=== PATIENT | female | born 1955 | race Caucasian/White ===

== ENCOUNTER 2021-05-02 12:11 | Inpatient (IN) ==
[2021-05-02] MEDS ORDERED: 0.9 % SODIUM CHLORIDE 1,000 ML IV ONE ×2 (12:31→14:07)
[2021-05-02] MEDS ORDERED: ONDANSETRON 4 MG/2 ML VIAL IV ONE ×2 (12:31→14:08)
[2021-05-02] MEDS ORDERED: ONDANSETRON 4 MG ODT TABLET SL ONE (12:36)
--- NOTE | 2021-05-02 13:06 | Emergency Department Note ---
Female Urogenital HPI General Chief complaint: Urogenital-Female Stated complaint: blood in urine Time Seen by Provider: 05/02/21 12:21 Source: patient and family Mode of arrival: ambulatory Limitations: no limitations History of Present Illness HPI Narrative: Narrative: Patient is a 66-year-old female who comes into the emergency department with concern of when she voided she had bright red blood in the toilet. She indicates that this started this morning. She has been nauseous over the last couple of days, but her son reports that she often has chronic nausea and he is not sure if this is related to her pain medication that she takes which causes her to be nauseous. She indicates that the nausea has now subsided since arriving to the emergency department. She has not had any abdominal pain, melena, hematochezia. She reports normal bowel movements with soft brown bowel movements. She was seen last week by myself in the emergency department and had tinea cruris, and was treated with clotrimazole. Patient and her son indicate that this has began to improve significantly. She has not noticed any breaks in the skin, lacerations, or vaginal discharge. She has not had any fevers or chills. She has not had any chest pain, shortness of breath, or difficulty breathing. Related Data Home Medications Medication Instructions Recorded Confirmed aspirin 81 mg tablet,delayed 81 mg PO QDAY 06/28/19 03/23/21 release Previous Rx's Medication Instructions Recorded methocarbamol 750 mg tablet 750 mg PO TID #60 tab 07/19/19 docusate sodium 100 mg capsule 100 mg PO QDAY #90 cap 10/22/19 furosemide 40 mg tablet 40 mg PO QAM #30 tab 04/01/20 metoprolol tartrate 25 mg tablet 12.5 mg PO BID #30 tab 11/25/20 amlodipine 10 mg tablet 10 mg PO QDAY #90 tab 12/26/20 atorvastatin 40 mg tablet 40 mg PO QHS #90 tab 12/26/20 losartan 100 mg tablet 100 mg PO QDAY #90 tab 12/26/20 naproxen 500 mg tablet 500 mg PO BID PRN #60 tab 01/28/21 albuterol sulfate 90 mcg/actuation 2 puff INHALATION QID #18 g 02/09/21 aerosol inhaler paroxetine HCl 20 mg tablet See Rx Instructions .ROUTE 02/23/21 .COMPLEX #30 tab potassium chloride 10 mEq See Rx Instructions .ROUTE 02/23/21 tablet,extended release(part/cryst) .COMPLEX #30 tab haloperidol 5 mg tablet See Rx Instructions .ROUTE 03/12/21 .COMPLEX #90 tab lorazepam 1 mg tablet 1 mg PO QD-BID PRN #60 tab 03/12/21 clopidogrel 75 mg tablet See Rx Instructions .ROUTE 03/23/21 .COMPLEX #90 tab benztropine 0.5 mg tablet See Rx Instructions .ROUTE 04/13/21 .COMPLEX #90 tab clotrimazole 1 applic TOPICAL BID 14 Days #45 g 04/26/21 hydrocodone 5 mg-acetaminophen 325 1 tab PO Q6H #120 tab 04/27/21 mg tablet Allergies Allergy/AdvReac Type Severity Reaction Status Date / Time gabapentin [From Neurontin] Allergy Unknown Increase Verified 03/23/21 09:02 depression and dizziness Review of Systems ROS ROS Narrative: Narrative: All systems ED: reviewed and negative except as stated. [facility] Narrative Patient History Narrative: Narrative: Medical/Surgical/Family History All Active Problems (Updated 05/02/21 @ 14:14 by CARLOS Hsu) Tinea cruris (Acute) Acute bacterial conjunctivitis of both eyes (Acute) COPD (chronic obstructive pulmonary disease) (Acute) Osteoporosis (Acute) Annual physical exam (Acute) Arthritis (Acute) Transient ischemic attack, acute (Acute) Chronic hip pain, bilateral (Acute) Asthma (Acute) UTI (urinary tract infection) (Acute) Acute congestive heart failure (Acute) Stress fracture, left femur, subsequent encounter for fracture with routine healing (Acute) Left inguinal pain (Acute) History of colonoscopy (Chronic 12/10/13) Hyperlipemia (Chronic) Hyponatremia (Chronic) Currently smokes tobacco (Chronic) Osteopenia (Chronic) Total urinary incontinence (Chronic) Obstructive sleep apnea (Chronic) Hypertension (Chronic) Encounter for long-term (current) use of other medications (Chronic) Restless leg syndrome (Chronic) CAD (coronary artery disease) (Chronic) Acute anteroseptal myocardial infarction (Chronic ~2018) Cataract (Chronic) Anxiety (Chronic) Schizophrenia (Chronic) Glaucoma (Chronic) Acute encephalopathy (Chronic) Medical History (Updated 05/02/21 @ 14:14 by CARLOS Hsu) Acute anteroseptal myocardial infarction (~2018) Acute encephalopathy Anxiety CAD (coronary artery disease) Cataract Currently smokes tobacco Elevated blood pressure reading without diagnosis of hypertension Encounter for long-term (current) use of other medications Glaucoma Hyperlipemia Hypertension Hyponatremia Hyponatremia Leg fracture, left Obstructive sleep apnea Osteopenia Restless leg syndrome Schizophrenia Total urinary incontinence Surgical History History of colonoscopy (12/10/13) diverticulosis Family History Other No pertinent family history Social History Smoking Status: Former smoker Alcohol Intake Frequency: does not drink Substance Use: does not use Exam Narrative Narrative: Narrative: General Limitations: no limitations General appearance: Present in no apparent distress and obese Eye Eye: Present other (Conjunctival injection OU with mild yellow mucoid discharge to each conjunctival sac.); Absent scleral icterus ENT ENT: Present normal oropharynx and mucous membranes moist Neck Neck: Present normal inspection and full ROM Chest Chest: Present symmetric chest wall rise Respiratory Respiratory: Present normal lung sounds bilaterally; Absent respiratory distress, rales/crackles, wheezes, stridor, accessory muscle use and prolonged expiratory phase Cardiovascular Cardiovascular: Present regular rate, normal rhythm and normal heart sounds; Absent systolic murmur and diastolic murmur Adbominal Abdominal: Present soft and normal bowel sounds; Absent distention, tenderness, guarding, rebound, rigidity, ascites and mass Extremities Extremities: Present normal inspection, full ROM and normal capillary refill Back Back: Present normal inspection and full ROM; Absent CVA tenderness (R) and CVA tenderness (L) Neurological Neurological: Present alert and oriented X3 Psychiatric Psychiatric: Present normal affect and normal mood Skin Skin: Present warm (WNL), dry and normal color Course Vital Signs Vital signs: Vital Signs Temperature 97.9 F 05/02/21 12:12 Pulse Rate 61 05/02/21 12:12 Respiratory Rate 16 05/02/21 12:12 Blood Pressure 152/73 05/02/21 12:12 Pulse Oximetry (%) 98 05/02/21 12:12 Temperature 97.9 F 05/02/21 12:12 Pulse Rate 62 05/02/21 13:31 Respiratory Rate 16 05/02/21 12:12 Blood Pressure 147/70 05/02/21 14:00 Pulse Oximetry (%) 92 05/02/21 13:31 MDM MDM Narrative Medical decision making narrative: Narrative: 66-year-old female who comes into the emergency department with complaint of hematuria that started today. Urinalysis showed signs of urinary tract infection. She has a white count today of 15.3. Vital signs today are normal. She is afebrile. Does not appear to show signs of sepsis. Her chemistry panel shows that her sodium is 125. Normal renal function. Patient does have a history of hyponatremia. She reports today that she decreased her salt intake recently. She does have underlying psychiatric illness of schizophrenia which perhaps medications could have caused the hyponatremia as well. I discussed this case with the hospitalist today, and Dr. Cheema agrees to accept the patient for hospital admission at [facility]. Patient will be ordered 1 g Rocephin IV to be given here in the emergency department, and will start 1 L normal saline. Lab Data Lab results reviewed: Yes I reviewed the patient's lab results. Result diagrams: 05/02/21 12:53 05/02/21 12:52 Labs: Lab Results 05/02/21 05/02/21 05/02/21 Range/Units 12:35 12:52 12:53 WBC 15.3 H (4.5-11.0) K/mcL RBC 3.91 (3.59-5.38) M/mcL Hgb 12.2 (11.2-15.7) g/dL Hct 35.8 (34.1-44.9) % MCV 91.6 (80.0-100.0) fL MCH 31.2 (26.0-34.0) pg MCHC 34.1 (31.0-36.0) g/dL RDW 13.1 (11.5-14.5) % Plt Count 346 (140-440) K/mcL MPV 9.3 (7.4-10.4) fL Neut % (Auto) 76.5 (38.0-78.0) % Lymph % (Auto) 13.6 L (15.5-49.0) % [place] % (Auto) 7.4 (1.0-12.0) % Eos % (Auto) 1.8 (0.0-7.0) % Baso % (Auto) 0.7 (0.0-2.0) % Lymph # (Auto) 2.09 (1.50-4.80) K/mcL [place] # (Auto) 1.13 H (0.10-0.90) K/mcL Eos # (Auto) 0.27 (0.00-0.70) K/mcL Baso # (Auto) 0.10 (0.00-0.30) K/mcL Absolute Neutrophils 11.74 H (1.80-8.00) K/mcL Sodium 125 L (133-145) mmol/L Potassium 4.1 (3.3-5.1) mmol/L Chloride 89 L (96-108) mmol/L Carbon Dioxide 29 (22-30) mmol/L Anion Gap 7.0 L (8.0-16.0) BUN 11 (8-23) mg/dL Creatinine 0.9 (0.6-1.1) mg/dL GFR Calculation 66 Glucose 125 H (70-105) mg/dL Calcium 9.9 (8.6-10.4) mg/dL Total Bilirubin 0.3 (0.1-1.0) mg/dL AST 10 (<32) U/L ALT 9 (<40) U/L Alkaline Phosphatase 78 (39-117) U/L Total Protein 6.8 (5.9-8.4) gm/dL Albumin 3.9 (3.2-5.2) gm/dL Globulin 2.9 (2.2-3.7) gm/dL Albumin/Globulin Ratio 1.3 (1.0-2.3) Urine Color Red Urine Appearance Hazy A (Clear) Urine pH 7.0 (5.0-9.0) Ur Specific [place] 1.003 (1.000-1.035) Urine Protein 100 A (Negative) mg/dL Urine Glucose (UA) Negative (Negative) mg/dL Urine Ketones Negative (Negative) mg/dL Urine Occult Blood 0.20 (Negative) mg/dL Urine Nitrate Negative (Negative) Urine Bilirubin Negative (Negative) mg/dL Urine Urobilinogen Negative mg/dL Ur Leukocyte Esterase 500 A (Negative) /uL Urine RBC 178 H (0-3) /hpf Urine WBC 39 H (0-4) /hpf Ur Squamous Epith Cells 0 (0-4) /hpf Ur Transition Epith Cell 1 (0-2) /hpf Urine Bacteria Mod A (0) /hpf Hyaline Casts 1 (0-2) /lph Ur Culture Indicated? yes Discharge Plan Patient/Caregiver Discharge Instructions Pt seen by OUTSIDE SALESPERSON/PA only: No Clinical Impression: UTI (urinary tract infection), Hyponatremia, Acute bacterial conjunctivitis of both eyes Patient Disposition: Xfer As Inpt ([facility]) Condition: Fair Follow up with: Chong Nichols MD [Primary Care Provider] - Prescriptions: No Action methocarbamol 750 mg tablet 750 mg PO TID Qty: 60 RF: 1 docusate sodium [Colace] 100 mg capsule 100 mg PO QDAY Qty: 90 RF: 4 furosemide 40 mg tablet 40 mg PO QAM Qty: 30 RF: 2 metoprolol tartrate 25 mg tablet 12.5 mg PO BID Qty: 30 RF: 5 amlodipine 10 mg tablet 10 mg PO QDAY Qty: 90 RF: 3 losartan 100 mg tablet 100 mg PO QDAY Qty: 90 RF: 3 atorvastatin 40 mg tablet 40 mg PO QHS Qty: 90 RF: 3 naproxen [Naprosyn] 500 mg tablet 500 mg PO BID PRN (Reason: pain) Qty: 60 RF: 2 albuterol sulfate 90 mcg/actuation HFA aerosol inhaler 2 puff INHALATION QID Qty: 18 RF: 6 potassium chloride [Klor-Con M10] 10 mEq tablet,ER particles/crystals See Rx Instructions .ROUTE .COMPLEX Qty: 30 RF: 2 paroxetine HCl 20 mg tablet See Rx Instructions .ROUTE .COMPLEX Qty: 30 RF: 4 lorazepam 1 mg tablet 1 mg PO QD-BID PRN (Reason: Anxiety) Qty: 60 RF: 3 haloperidol 5 mg tablet See Rx Instructions .ROUTE .COMPLEX Qty: 90 RF: 1 clopidogrel 75 mg tablet See Rx Instructions .ROUTE .COMPLEX Qty: 90 RF: 2 benztropine 0.5 mg tablet See Rx Instructions .ROUTE .COMPLEX Qty: 90 RF: 0 hydrocodone-acetaminophen 5-325 mg tablet 1 tab PO Q6H Qty: 120 RF: 0 aspirin [Adult Low Dose Aspirin] 81 mg tablet,delayed release (DR/EC) 81 mg PO QDAY RF: 0 clotrimazole 1 % cream 1 applic topical BID 14 Days Qty: 45 RF: 0
[2021-05-02 13:13] LABS: Basophils % (Auto) 0.7 % (0.0-2.0); Eosinophils # (Auto) 0.27 K/mcL (0.00-0.70); Eosinophils % (Auto) 1.8 % (0.0-7.0); Hematocrit 35.8 % (34.1-44.9); Hemoglobin 12.2 g/dL (11.2-15.7); Lymphocytes # (Auto) 2.09 K/mcL (1.50-4.80); Lymphocytes % (Auto) 13.6 % (15.5-49.0); Mean Cell Volume 91.6 fL (80.0-100.0); Mean Corpuscular HGB Conc 34.1 g/dL (31.0-36.0); Mean Platelet Volume 9.3 fL (7.4-10.4); Monocytes # (Auto) 1.13 K/mcL (0.10-0.90); Monocytes % (Auto) 7.4 % (1.0-12.0); Neutrophils % (Auto) 76.5 % (38.0-78.0); Platelet Count 346 K/mcL (140-440); RBC 3.91 M/mcL (3.59-5.38); Red Cell Distribution Width 13.1 % (11.5-14.5); WBC 15.3 K/mcL (4.5-11.0)
[2021-05-02 13:21] LABS: Appearance,Urine Hazy (Clear); Bacteria,Urine MOD /hpf (0); Bilirubin,Urine Negative (Negative); Color,Urine RED; Culture Indicated,Urine yes; Glucose,Urine (UA) Negative (Negative); Ketones,Urine Negative (Negative); Leukocyte Esterase,Urine 500 /uL (Negative); Nitrate,Urine Negative (Negative); Protein,Urine 100 mg/dL (Negative); Specific Gravity,Urine 1.003 (1.000-1.035); Urine Hyaline Cast 1 /lph (0-2); Urine RBC 178 /hpf (0-3); Urine Squamous Epithelial Cell 0 /hpf (0-4); Urine Transitional Epi Cells 1 /hpf (0-2); Urine WBC 39 /hpf (0-4); Urobilinogen,Urine Negative
[2021-05-02 13:32] LABS: ALT/SGPT 9 U/L (<40); AST/SGOT 10 U/L (<32); Albumin 3.9 gm/dL (3.2-5.2); Albumin/Globulin Ratio 1.3 (1.0-2.3); Alkaline Phosphatase 78 U/L (39-117); Bilirubin,Total 0.3 mg/dL (0.1-1.0); Blood Urea Nitrogen 11 mg/dL (8-23); Calcium 9.9 mg/dL (8.6-10.4); Carbon Dioxide 29 mmol/L (22-30); Chloride 89 mmol/L (96-108); Globulin 2.9 gm/dL (2.2-3.7); Glomerular Filtration Rate 66; Glucose 125 mg/dL (70-105)
[2021-05-02] MEDS ORDERED: cefTRIAXone 1 GM VIAL IV ONE (14:07)
--- NOTE | 2021-05-02 14:34 | Internal Med History&Physical ---
HPI History of Present Illness Patient information: Note initiated : 05/02/21 at 2:33 pm Service Date, if different from initiated Date: [] Patient: Nica De La Rosa a 66 y/o F admitted on for blood in urine. Chief Complaint: [UTI, hyponatremia] History of present illness: Ms. De La Rosa is a 66 year old F history of schizophrenia, essential hypertension, mixed dyslipidemia, CAD, COPD, recent diagnosis of Covid pneumonia, presented with 1 week history of increased urinary frequency. She was being diagnosed with Covid pneumonia on April 21, 2021. Over the past week, she is presenting with acute onset, virtually worsening increased urinary frequency. She denies any other urinary symptoms such as urinary hesitancy or dysuria. She denies any fever or chills. She denies any general body weakness. She denies any nausea or vomiting. Vital signs at ED p resentations all with no more limits and she is afebrile. Labs significant with lack of leukocytosis with WBC 15.3. Serum sodium level 125 with baseline 135. Urinalysis suggest the presence of urinary tract infections. Constitutional Constitutional: Absent chills, excessive sweating, fatigue, fever(s) and weakne ss EENT Eyes: Absent blurry vision, change in vision, loss of vision and other visual disturbances Ears: Absent decreased hearing and tinnitus Nose, mouth and throat: Absent abnormal hearing, dry mouth, headache(s), nasal congestion and sore throat Cardiovascular Cardiovascular: Absent chest pain, chest pain at rest, edema, irregular heart rhythm and palpatations Respiratory Respiratory: Absent cough, dyspnea and wheezing Gastrointestinal Gastrointestinal: Absent abdominal pain, constipation, diarrhea, nausea and vomiting Genitourinary Genitourinary: Present urinary frequency Musculoskeletal Musculoskeletal: Absent back pain, deformity, limited range of motion, muscle cramps, muscle weakness and numbness Integumentary Integumentary: Absent lesions, rash and wounds Neurological Neurological: Absent focal weakness, headache(s) and numbness Psychiatric Psychiatric: Absent anxiety, depression and hallucinations PFSH PFSH All Active Problems (Updated 05/02/21 @ 14:40 by Emile Cheema MD) Viral conjunctivitis of both eyes (Acute) Tinea cruris (Acute) Acute bacterial conjunctivitis of both eyes (Acute) COPD (chronic obstructive pulmonary disease) (Acute) Osteoporosis (Acute) Annual physical exam (Acute) Arthritis (Acute) Transient ischemic attack, acute (Acute) Chronic hip pain, bilateral (Acute) Asthma (Acute) UTI (urinary tract infection) (Acute) Acute congestive heart failure (Acute) Stress fracture, left femur, subsequent encounter for fracture with routine healing (Acute) Left inguinal pain (Acute) History of colonoscopy (Chronic 12/10/13) Hyperlipemia (Chronic) Hyponatremia (Chronic) Currently smokes tobacco (Chronic) Osteopenia (Chronic) Total urinary incontinence (Chronic) Obstructive sleep apnea (Chronic) Hypertension (Chronic) Encounter for long-term (current) use of other medications (Chronic) Restless leg syndrome (Chronic) CAD (coronary artery disease) (Chronic) Acute anteroseptal myocardial infarction (Chronic ~2018) Cataract (Chronic) Anxiety (Chronic) Schizophrenia (Chronic) Glaucoma (Chronic) Acute encephalopathy (Chronic) Medical History (Updated 05/02/21 @ 14:40 by Emile Cheema MD) Acute anteroseptal myocardial infarction (~2018) Acute encephalopathy Anxiety CAD (coronary artery disease) Cataract Currently smokes tobacco Elevated blood pressure reading without diagnosis of hypertension Encounter for long-term (current) use of other medications Glaucoma Hyperlipemia Hypertension Hyponatremia Hyponatremia Leg fracture, left Obstructive sleep apnea Osteopenia Restless leg syndrome Schizophrenia Total urinary incontinence Surgical History History of colonoscopy (12/10/13) diverticulosis Family History Other No pertinent family history Social History household members: spouse marital status: occupation: Homemaker alcohol intake frequency: does not drink substance use type: does not use MEDS/ALLERGIES Home Medications and Allergies Home Medications Medication Instructions Recorded Confirmed Type aspirin 81 mg tablet,delayed 81 mg PO QDAY 06/28/19 03/23/21 History release methocarbamol 750 mg tablet 750 mg PO TID #60 tab 07/19/19 03/23/21 Rx docusate sodium 100 mg capsule 100 mg PO QDAY #90 cap 10/22/19 03/23/21 Rx furosemide 40 mg tablet 40 mg PO QAM #30 tab 04/01/20 03/23/21 Rx metoprolol tartrate 25 mg tablet 12.5 mg PO BID #30 tab 11/25/20 03/23/21 Rx amlodipine 10 mg tablet 10 mg PO QDAY #90 tab 12/26/20 03/23/21 Rx atorvastatin 40 mg tablet 40 mg PO QHS #90 tab 12/26/20 03/23/21 Rx losartan 100 mg tablet 100 mg PO QDAY #90 tab 12/26/20 03/23/21 Rx naproxen 500 mg tablet 500 mg PO BID PRN #60 tab 01/28/21 03/23/21 Rx albuterol sulfate 90 mcg/actuation 2 puff INHALATION QID #18 g 02/09/21 03/23/21 Rx aerosol inhaler paroxetine HCl 20 mg tablet See Rx Instructions .ROUTE 02/23/21 03/23/21 Rx .COMPLEX #30 tab potassium chloride 10 mEq See Rx Instructions .ROUTE 02/23/21 03/23/21 Rx tablet,extended release(part/cryst) .COMPLEX #30 tab haloperidol 5 mg tablet See Rx Instructions .ROUTE 03/12/21 03/23/21 Rx .COMPLEX #90 tab lorazepam 1 mg tablet 1 mg PO QD-BID PRN #60 tab 03/12/21 03/23/21 Rx clopidogrel 75 mg tablet See Rx Instructions .ROUTE 03/23/21 Rx .COMPLEX #90 tab benztropine 0.5 mg tablet See Rx Instructions .ROUTE 04/13/21 Rx .COMPLEX #90 tab clotrimazole 1 applic TOPICAL BID 14 Days #45 g 04/26/21 Rx hydrocodone 5 mg-acetaminophen 325 1 tab PO Q6H #120 tab 04/27/21 Rx mg tablet Allergies Allergy/AdvReac Type Severity Reaction Status Date / Time gabapentin [From Neurontin] AdvReac Intermediate Increase Verified 05/02/21 14:46 depression and dizziness EXAM Constitutional Vitals: Temp Pulse Resp BP Pulse Ox 36.6 C 62 16 147/70 92 05/02/21 12:12 05/02/21 13:31 05/02/21 12:12 05/02/21 14:00 05/02/21 13:31 General appearance: cooperative and no acute distress Head Head exam: Present atraumatic and normocephalic Eye Eye exam: Present conjunctival injection and EOMI; Absent PERRL ENT ENT exam: Present mucous membranes moist, normal exam and normal external ear exam Neck Neck exam: Present normal inspection; Absent lymphadenopathy, tenderness and thyromegaly Respiratory Respiratory exam: Absent accessory muscle use, respiratory distress and wheezes Cardiovascular Cardiovascular exam: Present normal rate and rhythm; Absent JVD GI/Abdominal GI/Abdominal exam: Present normal bowel sounds and soft; Absent organomegaly and tenderness Extremities Exam Extremities exam: Present full ROM, normal capillary refill and normal inspection; Absent tenderness Neurological Exam Neurological exam: Present alert, CN II-XII intact and oriented X3; Absent motor sensory deficit Psychiatric Psychiatric exam: Present normal affect and normal mood; Absent anxious and depressed Skin Skin exam: Present dry and intact DATA Data Completed and Pending Labs: Labs from last 24 hours 05/02/21 05/02/21 05/02/21 12:53 12:52 12:35 WBC 15.3 H RBC 3.91 Hgb 12.2 Hct 35.8 MCV 91.6 MCH 31.2 MCHC 34.1 RDW 13.1 Plt Count 346 MPV 9.3 Neut % (Auto) 76.5 Lymph % (Auto) 13.[address] [place] % (Auto) 7.4 Eos % (Auto) 1.8 Baso % (Auto) 0.7 Lymph # (Auto) 2.09 [place] # (Auto) 1.13 H Eos # (Auto) 0.27 Baso # (Auto) 0.10 Absolute Neutrophils 11.74 H Sodium 125 L Potassium 4.1 Chloride 89 L Carbon Dioxide 29 Anion Gap 7.0 L BUN 11 Creatinine 0.9 GFR Calculation 66 Glucose 125 H Calcium 9.9 Total Bilirubin 0.3 AST 10 ALT 9 Alkaline Phosphatase 78 Total Protein 6.8 Albumin 3.9 Globulin 2.9 Albumin/Globulin Ratio 1.3 Urine Color Red Urine Appearance Hazy A Urine pH 7.0 Ur Specific [place] 1.003 Urine Protein 100 A Urine Glucose (UA) Negative Urine Ketones Negative Urine Occult Blood 0.20 Urine Nitrate Negative Urine Bilirubin Negative Urine Urobilinogen Negative Ur Leukocyte Esterase 500 A Urine RBC 178 H Urine WBC 39 H Ur Squamous Epith Cells 0 Ur Transition Epith Cell 1 Urine Bacteria Mod A Hyaline Casts 1 Ur Culture Indicated? yes A/P Assessment and plan (1) COPD (chronic obstructive pulmonary disease): Status: Acute (2) Viral conjunctivitis of both eyes: Status: Acute (3) UTI (urinary tract infection): Status: Acute (4) Hyperlipemia: Status: Chronic Qualifiers: Hyperlipidemia type: mixed hyperlipidemia Qualified Code(s): E78.2 - Mixed hyperlipidemia (5) Hyponatremia: Status: Chronic (6) Hypertension: Status: Chronic Qualifiers: Hypertension type: essential hypertension Qualified Code(s): I10 - Essential (primary) hypertension (7) CAD (coronary artery disease): Status: Chronic Qualifiers: Coronary Disease-Associated Artery/Lesion type: [place] artery [place] vs. transplanted heart: unspecified whether [place] or transplanted heart Associated angina: without angina Qualified Code(s): I25.10 - Atherosclerotic heart disease of [place] coronary artery without angina pectoris (8) Schizophrenia: Status: Chronic Qualifiers: Schizophrenia type: paranoid schizophrenia Qualified Code(s): F20.0 - Paranoid schizophrenia Narrative A/P Narrative: Assessment and plan: 1. Urinary tract infections: Admit to inpatient MedSurg Urine culture Blood culture Serial lactic acid Procalcitonin CBC with auto differential in the morning to trend WBC Rocephin Status post 1 L NS bolus given in the ED, to be followed by NS at 75 cc/h Tylenol as needed fever 2. Acute hyponatremia: Differential diagnosis: Secondary to medications such as diuretics and SSRI versus endocrine causes such as SIADH Urine osmolality and urine sodium level to rule out SIADH Hold Lasix Hold paroxetine Status post 1 L NS bolus given in the ED, to be followed by NS at 75 cc/h BMP every 8 hours to trend the rate of correction of hyponatremia with goals of corrections 8-10 points over the first 24 hours in order to avoid neurologic consequences such as central pontine myelinolysis 3. History of schizophrenia: Hold paroxetine Continue Ativan as needed for anxiety Continue Haldol as needed for psychosis next 4. History of CAD: Continue Plavix and statin Continue oral antihypertensive to control blood pressure 5. History of essential hypertension: Currently normotensive Hold Lasix Continue the rest of the oral antihypertensives including amlodipine, metoprolol, and losartan #6 mixed dyslipidemia: Continue statin therapy #7 history of COPD, stable: Currently tolerating room air Continue home inhalers DuoNeb nebulizer as needed wheezing or shortness of breath #8 acute bilateral conjunctivitis, viral versus bacterial: Is less likely to be bacterial given lack of pain, relatively preserved visions, and lack of pustular crust formations We will cover with gentamicin eyedrops OU #9 asymptomatic Covid infections: Patient is tolerating room air, does no need to initiate Covid specific treatments such as remdesivir or dexamethasone Continue isolation protocol with airborne and contact isolation GI prophylaxis: Not currently indicated DVT prophylaxis: Lovenox CODE STATUS: Full code Prognosis: Guarded Disposition: Inpatient MedSurg Time Spent With Patient Time: Total time spent is greater than 50% in coordination of care (as documented) at patient's floor/unit and/or counseling patient: Total time spent with greater than 50% in coordination of care (as documented) at patient's floor/unit and/or counseling patient:: Greater than 35 minutes
--- NOTE | 2021-05-02 15:09 | XRay Report ---
INDICATION: covid positive TECHNIQUE: AP portable semiupright chest x-ray COMPARISON: Previous examinations dated 01/28/2019 and 01/09/2019 FINDINGS: Lungs:Lungs are negative. No focal pulmonary parenchymal infiltrate or mass Heart, vascular:No significant cardiomegaly. Pulmonary vascularity is normal. No pulmonary edema or pulmonary congestion Mediastinum, [place]:No mediastinal widening. No hilar mass Pleura:No pleural fluid. No pleural-based mass or calcification Skeletal:Negative. IMPRESSION: 1. Negative AP chest x-ray 2. No interval change since 01/28/2019 Interpreted and Authenticated by: Zack Emerson 05/02/21
[2021-05-02] MEDS ORDERED: IPRATROPIUM/ALBUTEROL 3 ML AMPUL.NEB NEB PRN (16:12)
[2021-05-02] MEDS ORDERED: ZOLPIDEM 5 MG TABLET PO PRN (16:12)
[2021-05-02] MEDS ORDERED: ACETAMINOPHEN 325 MG TABLET PO PRN (16:12)
[2021-05-02 16:29] LABS: Osmolality,Urine 112 mOSM/kg (80-1000)
[2021-05-02 16:38] LABS: Sodium, Urine Random 15 mmol/L
[2021-05-02] MEDS ORDERED: GENTAMICIN 0.3% OPHTH DROPS 5ML BOTTLE OU SCH (17:00)
[2021-05-02 17:43] LABS: Blood Urea Nitrogen 10 mg/dL (8-23); Calcium 9.8 mg/dL (8.6-10.4); Carbon Dioxide 23 mmol/L (22-30); Chloride 94 mmol/L (96-108); Glomerular Filtration Rate 76; Glucose 91 mg/dL (70-105)
[2021-05-02] MEDS ORDERED: HYDROcodone/APAP 5/325MG TABLET PO PRN (17:59)
[2021-05-02] MEDS ORDERED: NAPROXEN 250 MG TABLET PO PRN (18:00)
[2021-05-02] MEDS: GENTAMICIN 0.3% OPHTH DROPS 5ML BOTTLE OU SCH ×2 (18:50→20:57)
[2021-05-02] MEDS: METHOCARBAMOL 750 MG TABLET PO SCH ×2 (18:53→19:52)
[2021-05-02] MEDS: 0.9 % SODIUM CHLORIDE 1,000 ML IV SCH (18:53)
[2021-05-02] MEDS: ALBUTEROL SULFATE 200 PUFF INHALER INH SCH ×2 (18:54→20:57)
[2021-05-02] MEDS: CLOTRIMAZOLE CRM 1% 1 DOSE TUBE TOPICAL SCH (18:59)
[2021-05-02] MEDS: LORazepam 1 MG TABLET PO PRN (19:42)
[2021-05-02] MEDS: DOCUSATE SODIUM 100 MG CAPSULE PO SCH (19:43)
[2021-05-02] MEDS: METOPROLOL TARTRATE 25 MG TABLET PO SCH (19:43)
[2021-05-02] MEDS: SENNOSIDES 1 TABLET PO SCH (19:43)
[2021-05-02] MEDS: ATORVASTATIN 40 MG TABLET PO SCH (19:43)
[2021-05-02] MEDS: 0.9 % SODIUM CHLORIDE 10 ML SYRINGE IV SCH (20:56)
[2021-05-02] MEDS: ONDANSETRON 4 MG/2 ML VIAL IV PRN (21:10)
[2021-05-03] MEDS: LORazepam 1 MG TABLET PO PRN ×3 (00:12→21:45)
[2021-05-03] MEDS: GENTAMICIN 0.3% OPHTH DROPS 5ML BOTTLE OU SCH ×2 (03:30→08:24)
[2021-05-03] MEDS: 0.9 % SODIUM CHLORIDE 1,000 ML IV SCH ×2 (03:31→10:45)
[2021-05-03 03:33] LABS: Blood Urea Nitrogen 8 mg/dL (8-23); Calcium 8.4 mg/dL (8.6-10.4); Carbon Dioxide 25 mmol/L (22-30); Chloride 96 mmol/L (96-108); Glomerular Filtration Rate 90; Glucose 102 mg/dL (70-105)
[2021-05-03] MEDS: 0.9 % SODIUM CHLORIDE 10 ML SYRINGE IV SCH ×3 (04:37→21:45)
[2021-05-03 06:59] LABS: Basophils % (Auto) 0.8 % (0.0-2.0); Eosinophils # (Auto) 0.53 K/mcL (0.00-0.70); Eosinophils % (Auto) 4.3 % (0.0-7.0); Hematocrit 39.2 % (34.1-44.9); Lymphocytes # (Auto) 2.14 K/mcL (1.50-4.80); Lymphocytes % (Auto) 17.4 % (15.5-49.0); Mean Cell Volume 94.7 fL (80.0-100.0); Mean Corpuscular HGB Conc 33.2 g/dL (31.0-36.0); Mean Platelet Volume 9.4 fL (7.4-10.4); Monocytes # (Auto) 1.28 K/mcL (0.10-0.90); Monocytes % (Auto) 10.4 % (1.0-12.0); Neutrophils % (Auto) 67.1 % (38.0-78.0); Platelet Count 362 K/mcL (140-440); RBC 4.14 M/mcL (3.59-5.38); Red Cell Distribution Width 13.2 % (11.5-14.5); WBC 12.3 K/mcL (4.5-11.0)
[2021-05-03 07:49] LABS: ALT/SGPT 9 U/L (<40); AST/SGOT 12 U/L (<32); Albumin 3.8 gm/dL (3.2-5.2); Albumin/Globulin Ratio 1.1 (1.0-2.3); Alkaline Phosphatase 80 U/L (39-117); Bilirubin,Total 0.3 mg/dL (0.1-1.0); Blood Urea Nitrogen 6 mg/dL (8-23); Calcium 9.1 mg/dL (8.6-10.4); Carbon Dioxide 22 mmol/L (22-30); Chloride 98 mmol/L (96-108); Globulin 3.5 gm/dL (2.2-3.7); Glomerular Filtration Rate 76; Glucose 93 mg/dL (70-105)
[2021-05-03] MEDS: ASPIRIN 81 MG TAB.CHEW PO SCH (08:23)
[2021-05-03] MEDS: DOCUSATE SODIUM 100 MG CAPSULE PO SCH ×2 (08:24→19:24)
[2021-05-03] MEDS: BENZTROPINE 1 MG TABLET PO SCH (08:24)
[2021-05-03] MEDS: HALOPERIDOL 5 MG TABLET PO SCH (08:24)
[2021-05-03] MEDS: LOSARTAN 50 MG TABLET PO SCH (08:24)
[2021-05-03] MEDS: METOPROLOL TARTRATE 25 MG TABLET PO SCH ×2 (08:25→19:24)
[2021-05-03] MEDS: amLODIPine 10 MG TABLET PO SCH (08:25)
[2021-05-03] MEDS: ENOXAPARIN 40 MG/0.4 ML SYRINGE SQ SCH (08:25)
[2021-05-03] MEDS: CLOPIDOGREL 75 MG TABLET PO SCH (08:25)
[2021-05-03] MEDS: CLOTRIMAZOLE CRM 1% 1 DOSE TUBE TOPICAL SCH ×2 (08:25→19:54)
[2021-05-03] MEDS: cefTRIAXone 1 GM VIAL IV SCH (08:26)
[2021-05-03] MEDS: METHOCARBAMOL 750 MG TABLET PO SCH ×3 (08:26→19:25)
[2021-05-03] MEDS: ALBUTEROL SULFATE 200 PUFF INHALER INH SCH (08:26)
[2021-05-03] MEDS ORDERED: cefTRIAXone 1 GM in DEXTROSE 5% IN WATER 50 ML IV SCH (09:00)
[2021-05-03] MEDS ORDERED: DOCUSATE SODIUM 100 MG CAPSULE PO SCH (09:00)
[2021-05-03] MEDS: GENTAMICIN SULFATE OU SCH ×4 (10:44→19:28)
[2021-05-03 11:35] LABS: Blood Urea Nitrogen 5 mg/dL (8-23); Calcium 8.7 mg/dL (8.6-10.4); Carbon Dioxide 23 mmol/L (22-30); Chloride 99 mmol/L (96-108); Glomerular Filtration Rate 90; Glucose 116 mg/dL (70-105)
[2021-05-03] MEDS ORDERED: ALBUTEROL SULFATE 200 PUFF INHALER INH PRN (12:20)
[2021-05-03] MEDS ORDERED: HYDROcodone/APAP 5/325MG TABLET PO PRN (12:22)
--- NOTE | 2021-05-03 12:23 | Internal Med Progress Note ---
SUBJECTIVE Subjective Patient information: Note initiated : 05/03/21 at 12:22 pm Service Date, if different from initiated Date: [] Patient: Nica De La Rosa a 66 y/o F admitted on 05/02/21 for blood in urine. Chief Complaint: [UTI, hyponatremia] Interval history: History of present illness: Ms. De La Rosa is a 66 year old F history of schizophrenia, essential hypertension, mixed dyslipidemia, CAD, COPD, recent diagnosis of Covid pneumonia, presented with 1 week history of increased urinary frequency. She was being diagnosed with Covid pneumonia on April 21, 2021. Over the past week, she is presenting with acute onset, virtually worsening increased urinary frequency. She denies any other urinary symptoms such as urinary hesitancy or dysuria. She denies any fever or chills. She denies any general body weakness. She denies any nausea or vomiting. Vital signs at ED presentations all with no more limits and she is afebrile. Labs significant with lack of leukocytosis with WBC 15.3. Serum sodium level 125 with baseline 135. Urinalysis suggest the presence of urinary tract infections. 05/03: Afebrile overnight. Serum sodium level 125-->134. Blood and urine cultures no growth to date. c/o increased urinary frequency. Denies dysuria. Denies fever or chills or sweating. Denies SOB. Denies eyes pain. Constitutional Vitals: Vital Signs Temp Pulse Resp BP Pulse Ox 36.7 C 76 18 145/76 95 05/03/21 11:24 05/03/21 11:24 05/03/21 11:24 05/03/21 11:24 05/03/21 11:24 Period Temp Pulse Resp BP Sys/Sanchez Pulse Ox Last 24 Hr 36.1 C-36.7 C 62-94 15-18 119-147/67-80 90-100 Intake and Output 05/02/21 05/03/21 05/03/21 21:59 05:59 13:59 Intake Total 1000 1200 1720 Output Total 150 1900 2650 Balance 850 -700 -930 Weight 87.997 kg Intake & Output: Intake & Output 05/02/21 05/03/21 05/03/21 21:59 05:59 13:59 Intake Total 1000 1200 1720 Output Total 150 1900 2650 Balance 850 -700 -930 Weight 87.997 kg Intake: IV 1000 1000 Sodium Chloride 0.9% 1,000 ml @ 1000 1000 75 mls/hr IV .[id number] [facility] Rx#: [id number] Oral 0 1200 720 Output: Void Amount 150 1900 2650 Other: Meal Breakfast Percent of Meal Consumed 100% Feeding Ability Independent Urine Appearance Clear Clear Clear Urine Color Pale Pale Bright Yellow Bright Yellow Urine Odor Normal General appearance: cooperative and no acute distress Head Head exam: Present atraumatic and normocephalic Eye Eye exam: Present EOMI and scleral icterus; Absent PERRL ENT ENT exam: Present mucous membranes moist, normal exam and normal external ear exam Neck Neck exam: Present normal inspection; Absent lymphadenopathy, tenderness and thyromegaly Respiratory Respiratory exam: Absent accessory muscle use, respiratory distress and wheezes Cardiovascular Cardiovascular exam: Present normal rate and rhythm; Absent JVD GI/Abdominal GI/Abdominal exam: Present normal bowel sounds and soft; Absent organomegaly and tenderness Extremities Exam Extremities exam: Present full ROM, normal capillary refill and normal inspection; Absent tenderness Neurological Exam Neurological exam: Present alert, CN II-XII intact and oriented X3; Absent motor sensory deficit Psychiatric Psychiatric exam: Present normal affect and normal mood; Absent anxious and depressed Skin Skin exam: Present dry and intact OBJ DATA Labs CBC & Chem 7: 05/03/21 05:57 05/03/21 10:06 Labs: Abnormal Lab Results 05/03/21 05/03/21 05/03/21 10:06 05:57 05:56 WBC 12.3 H Lymph % (Auto) [place] # (Auto) 1.28 H Absolute Neutrophils 8.25 H Sodium 132 L Chloride Anion Gap BUN 5 L 6 L Glucose 116 H Calcium Urine Appearance Urine Protein Ur Leukocyte Esterase Urine RBC Urine WBC Urine Bacteria 05/03/21 05/02/21 05/02/21 01:56 16:35 12:53 WBC 15.3 H Lymph % (Auto) 13.6 L [place] # (Auto) 1.13 H Absolute Neutrophils 11.74 H Sodium 131 L 130 L Chloride 94 L Anion Gap BUN Glucose Calcium 8.4 L Urine Appearance Urine Protein Ur Leukocyte Esterase Urine RBC Urine WBC Urine Bacteria 05/02/21 05/02/21 12:52 12:35 WBC Lymph % (Auto) [place] # (Auto) Absolute Neutrophils Sodium 125 L Chloride 89 L Anion Gap 7.0 L BUN Glucose 125 H Calcium Urine Appearance Hazy A Urine Protein 100 A Ur Leukocyte Esterase 500 A Urine RBC 178 H Urine WBC 39 H Urine Bacteria Mod A Meds: Medications Acetaminophen (Acetaminophen 325 Mg Tablet) 650 mg PO Q6HP PRN; Protocol PRN Reason: Per Pain Protocol/Fever > 101 Hydrocodone Bitart/Acetaminophen (Hydrocodone/Apap 5/325mg Tablet) 1 tab PO Q6HP PRN PRN Reason: Pain Last Admin: 05/03/21 00:12 Dose: 1 tab Documented by: Hydrocodone Bitart/Acetaminophen (Hydrocodone/Apap (Pp) 5/325mg Tablet (#4)) t ablet PO PRN PRN PRN Reason: Pain Albuterol Sulfate (Albuterol Sulfate 200 Puff Inhaler) 2 puff INH QID [facility] Last Admin: 05/03/21 08:26 Dose: Not Given Documented by: Albuterol Sulfate (Albuterol Sulfate 200 Puff Inhaler) 2 puff INH PRN PRN PRN Reason: Shortness Of Breath Albuterol/Ipratropium (Ipratropium/Albuterol 3 Ml Ampul.Neb) 3 ml NEB Q4HRT PRN PRN Reason: Wheezing Amlodipine Besylate (Amlodipine 10 Mg Tablet) 10 mg PO QDAY [facility] Last Admin: 05/03/21 08:25 Dose: 10 mg Documented by: Aspirin (Aspirin 81 Mg Tab.Chew) 81 mg PO DAILY [facility] Last Admin: 05/03/21 08:23 Dose: 81 mg Documented by: Atorvastatin Calcium (Atorvastatin 40 Mg Tablet) 40 mg PO QHS [facility] Last Admin: 05/02/21 19:43 Dose: 40 mg Documented by: Benztropine Mesylate (Benztropine 1 Mg Tablet) 0.5 mg PO DAILY [facility] Last Admin: 05/03/21 08:24 Dose: 0.5 mg Documented by: Ceftriaxone Sodium (Ceftriaxone 1 Gm Vial) 1 gm IV Q24H [facility] Last Admin: 05/03/21 08:26 Dose: 1 gm Documented by: Clopidogrel Bisulfate (Clopidogrel 75 Mg Tablet) 75 mg PO DAILY [facility] Last Admin: 05/03/21 08:25 Dose: 75 mg Documented by: Clotrimazole (Clotrimazole Crm 1% 1 Dose Tube) 1 dose TOPICAL BID [facility] Last Admin: 05/03/21 08:25 Dose: Not Given Documented by: Docusate Sodium (Docusate Sodium 100 Mg Capsule) 100 mg PO BID [facility] Last Admin: 05/03/21 08:24 Dose: 100 mg Documented by: Enoxaparin Sodium (Enoxaparin 40 Mg/0.4 Ml Syringe) 40 mg SQ DAILY [facility] Last Admin: 05/03/21 08:25 Dose: 40 mg Documented by: Gentamicin Sulfate (Gentamicin Sulfate 1 Ribbon Oint.Ophth 3.5gm) 1 ribbon OU Q4HWA [facility] Last Admin: 05/03/21 10:44 Dose: 1 dose Documented by: Haloperidol (Haloperidol 5 Mg Tablet) 5 mg PO DAILY [facility] Last Admin: 05/03/21 08:24 Dose: 5 mg Documented by: Sodium Chloride (Sodium Chloride 0.9%) 1,000 mls @ 75 mls/hr IV .[id number] [facility] Last Admin: 05/03/21 10:45 Dose: 75 mls/hr Documented by: Lorazepam (Lorazepam 1 Mg Tablet) 1 mg PO QD-BID PRN PRN Reason: Anxiety Last Admin: 05/03/21 00:12 Dose: 1 mg Documented by: Lorazepam (Lorazepam (Pp) 1 Mg Tablet (#4)) 0.5 mg PO QID [facility] Losartan Potassium (Losartan 50 Mg Tablet) 100 mg PO DAILY [facility] Last Admin: 05/03/21 08:24 Dose: 100 mg Documented by: Methocarbamol (Methocarbamol 750 Mg Tablet) 750 mg PO TID [facility] Last Admin: 05/03/21 08:26 Dose: 750 mg Documented by: Metoprolol Tartrate (Metoprolol Tartrate 25 Mg Tablet) 12.5 mg PO BID [facility] Last Admin: 05/03/21 08:25 Dose: 12.5 mg Documented by: Naproxen (Naproxen 250 Mg Tablet) 500 mg PO BIDP PRN; Protocol PRN Reason: Pain Ondansetron HCl (Ondansetron 4 Mg/2 Ml Vial) 4 mg IV Q6HP PRN PRN Reason: Nausea And Vomiting Last Admin: 05/02/21 21:10 Dose: 4 mg Documented by: Pneumococcal Polyvalent Vaccine (Pneumococcal 23-Silvana P-Sac Vac 0.5 Ml Syringe) 0.5 ml IM .ONCE ONE Stop: 05/04/21 10:01 Senna (Sennosides 1 Tablet) 2 tab PO HS [facility] Last Admin: 05/02/21 19:43 Dose: 2 tab Documented by: Sodium Chloride (0.9 % Sodium Chloride 10 Ml Syringe) 10 ml IV Q8 [facility] Last Admin: 05/03/21 04:37 Dose: Not Given Documented by: Zolpidem Tartrate (Zolpidem 5 Mg Tablet) 5 mg PO HSP PRN PRN Reason: Insomnia A/P Assessment and plan (1) COPD (chronic obstructive pulmonary disease): Status: Acute (2) Viral conjunctivitis of both eyes: Status: Acute (3) UTI (urinary tract infection): Status: Acute (4) Hyperlipemia: Status: Chronic Qualifiers: Hyperlipidemia type: mixed hyperlipidemia Qualified Code(s): E78.2 - Mixed hyperlipidemia (5) Hyponatremia: Status: Chronic (6) Hypertension: Status: Chronic Qualifiers: Hypertension type: essential hypertension Qualified Code(s): I10 - Essential (primary) hypertension (7) CAD (coronary artery disease): Status: Chronic Qualifiers: Associated angina: without angina Coronary Disease-Associated Artery/Lesion type: [place] artery [place] vs. transplanted heart: unspecified whether [place] or transplanted heart Qualified Code(s): I25.10 - Atherosclerotic heart disease of [place] coronary artery without angina pectoris (8) Schizophrenia: Status: Chronic Qualifiers: Schizophrenia type: paranoid schizophrenia Qualified Code(s): F20.0 - Paranoid schizophrenia Narrative A/P Narrative: Assessment and plan: 1. Urinary tract infections: Stays in inpatient MedSurg Urine culture, no growth to date Blood culture, no growth to date Serial lactic acid Procalcitonin CBC with auto differential in the morning to trend WBC Rocephin Saline lock Tylenol as needed fever 2. Acute hyponatremia: Differential diagnosis: Secondary to medications such as diuretics and SSRI versus endocrine causes such as SIADH Urine osmolality 112 and urine sodium level 15--->excluding SIADH Hold Lasix Hold paroxetine Saline lock 2L/day fluid restriction Daily CMP Goal of correction: 8-10 points over the first 24 hours to avoid neurological consequences such as central pontine myelinolysis 3. History of schizophrenia: Hold paroxetine Continue Ativan as needed for anxiety Continue Haldol as needed for psychosis next 4. History of CAD: Continue Plavix and statin Continue oral antihypertensive to control blood pressure 5. History of essential hypertension: Currently normotensive Hold Lasix Continue the rest of the oral antihypertensives including amlodipine, metopr olol, and losartan #6 mixed dyslipidemia: Continue statin therapy #7 history of COPD, stable: Currently tolerating room air Continue home inhalers DuoNeb nebulizer as needed wheezing or shortness of breath #8 acute bilateral conjunctivitis, viral versus bacterial: Is less likely to be bacterial given lack of pain, relatively preserved visions, and lack of pustular crust formations We will cover with gentamicin eyedrops OU #9 asymptomatic Covid infections: Patient is tolerating room air, does no need to initiate Covid specific treatments such as remdesivir or dexamethasone Continue isolation protocol with airborne and contact isolation GI prophylaxis: Not currently indicated DVT prophylaxis: Lovenox CODE STATUS: Full code Prognosis: Stable Disposition: Inpatient MedSurg Time Spent With Patient Time: Total time spent is greater than 50% in coordination of care (as documented) at patient's floor/unit and/or counseling patient: QUALITY VTE Deep Vein Thrombosis/Pulmonary Embolism Present on Admission: No
[2021-05-03] MEDS ORDERED: LORazepam (PP) 1 MG TABLET (#4) PO SCH (13:00)
[2021-05-03] MEDS: ONDANSETRON 4 MG/2 ML VIAL IV PRN (13:25)
[2021-05-03] MEDS: SENNOSIDES 1 TABLET PO SCH (19:24)
[2021-05-03] MEDS: ATORVASTATIN 40 MG TABLET PO SCH (19:24)
[2021-05-04] MEDS: GENTAMICIN SULFATE OU SCH ×3 (05:54→12:41)
[2021-05-04] MEDS: 0.9 % SODIUM CHLORIDE 10 ML SYRINGE IV SCH (05:56)
[2021-05-04 07:15] LABS: Basophils # (Auto) 0.08 K/mcL (0.00-0.30); Basophils % (Auto) 0.7 % (0.0-2.0); Eosinophils # (Auto) 0.29 K/mcL (0.00-0.70); Eosinophils % (Auto) 2.7 % (0.0-7.0); Hematocrit 40.2 % (34.1-44.9); Hemoglobin 12.7 g/dL (11.2-15.7); Lymphocytes # (Auto) 1.81 K/mcL (1.50-4.80); Lymphocytes % (Auto) 16.8 % (15.5-49.0); Mean Cell Volume 95.7 fL (80.0-100.0); Mean Corpuscular HGB Conc 31.6 g/dL (31.0-36.0); Mean Platelet Volume 9.6 fL (7.4-10.4); Monocytes # (Auto) 0.95 K/mcL (0.10-0.90); Monocytes % (Auto) 8.8 % (1.0-12.0); Platelet Count 339 K/mcL (140-440); Red Cell Distribution Width 13.2 % (11.5-14.5); WBC 10.8 K/mcL (4.5-11.0)
[2021-05-04 07:43] LABS: ALT/SGPT 8 U/L (<40); AST/SGOT 11 U/L (<32); Albumin 3.7 gm/dL (3.2-5.2); Albumin/Globulin Ratio 1.1 (1.0-2.3); Alkaline Phosphatase 81 U/L (39-117); Bilirubin,Total 0.3 mg/dL (0.1-1.0); Blood Urea Nitrogen 5 mg/dL (8-23); Calcium 9.1 mg/dL (8.6-10.4); Carbon Dioxide 22 mmol/L (22-30); Chloride 102 mmol/L (96-108); Globulin 3.4 gm/dL (2.2-3.7); Glomerular Filtration Rate 90; Glucose 101 mg/dL (70-105)
[2021-05-04] MEDS: CLOTRIMAZOLE CRM 1% 1 DOSE TUBE TOPICAL SCH (08:53)
[2021-05-04] MEDS: ENOXAPARIN 40 MG/0.4 ML SYRINGE SQ SCH (09:06)
[2021-05-04] MEDS: cefTRIAXone 1 GM VIAL IV SCH (09:08)
[2021-05-04] MEDS: BENZTROPINE 1 MG TABLET PO SCH (09:11)
[2021-05-04] MEDS: ASPIRIN 81 MG TAB.CHEW PO SCH (09:11)
[2021-05-04] MEDS: METOPROLOL TARTRATE 25 MG TABLET PO SCH (09:13)
[2021-05-04] MEDS: DOCUSATE SODIUM 100 MG CAPSULE PO SCH (09:13)
[2021-05-04] MEDS: METHOCARBAMOL 750 MG TABLET PO SCH (09:14)
[2021-05-04] MEDS: CLOPIDOGREL 75 MG TABLET PO SCH (09:14)
[2021-05-04] MEDS: HALOPERIDOL 5 MG TABLET PO SCH (09:14)
[2021-05-04] MEDS: LOSARTAN 50 MG TABLET PO SCH (09:15)
[2021-05-04] MEDS: LORazepam 1 MG TABLET PO PRN (09:15)
[2021-05-04] MEDS: amLODIPine 10 MG TABLET PO SCH (09:16)
[2021-05-04] MEDS ORDERED: PNEUMOCOCCAL 23-VAL P-SAC VAC 0.5 ML SYRINGE IM ONE (10:00)
[2021-05-04] MEDS ORDERED: FLU VACC QS2021-22(6MOS UP)/PF 60 MCG/0.5 ML SYRINGE IM ONE (10:00)
--- NOTE | 2021-05-04 10:35 | Discharge Summary ---
Discharge Provider Provider Patient information: Note initiated : 05/04/21 at 10:31 am Service Date, if different from initiated Date: [] Patient: Nica De La Rosa 66 y/o F admitted on 05/02/21 for blood in urine. Chief Complaint: [UTI, hyponatremia] History of present illness: Ms. De La Rosa is a 66 year old F history of schizophrenia, essential hypertension, mixed dyslipidemia, CAD, COPD, recent diagnosis of Covid pneumonia, presented with 1 week history of increased urinary frequency. She was being diagnosed with Covid pneumonia on April 21, 2021. Over the past week, she is presenting with acute onset, virtually worsening increased urinary frequency. She denies any other urinary symptoms such as urinary hesitancy or dysuria. She denies any fever or chills. She denies any general body weakness. She denies any nausea or vomiting. Vital signs at ED presentations all with no more limits and she is afebrile. Labs significant with lack of leukocytosis with WBC 15.3. Serum sodium level 125 with baseline 135. Urinalysis suggest the presence of urinary tract infections. Date of admission: 05/02/21 15:47 Discharge date: 05/04/21 Primary care physician: Chong Nichols MD Consults: 05/02/21 Consult to Physician [CONS] Stat Comment: Consulting Provider: Emile Cheema Reason For Exam: Physician to Consult Discharge Meds Discharge Medications Home Medications aspirin 81 mg tablet,delayed release 81 mg PO QDAY 06/28/19 [History Confirmed 05/02/21 Last Taken Unknown] methocarbamol 750 mg tablet 750 mg PO TID #60 tab 07/19/19 [Rx Confirmed 05/02/21 Last Taken Unknown] docusate sodium 100 mg capsule 100 mg PO QDAY #90 cap 10/22/19 [Rx Confirmed 05/02/21 Last Taken Unknown] metoprolol tartrate 25 mg tablet 12.5 mg PO BID #30 tab 11/25/20 [Rx Confirmed 05/02/21 Last Taken Unknown] amlodipine 10 mg tablet 10 mg PO QDAY #90 tab 12/26/20 [Rx Confirmed 05/02/21 Last Taken Unknown] atorvastatin 40 mg tablet 40 mg PO QHS #90 tab 12/26/20 [Rx Confirmed 05/02/21 Last Taken Unknown] losartan 100 mg tablet 100 mg PO QDAY #90 tab 12/26/20 [Rx Confirmed 05/02/21 Last Taken Unknown] naproxen 500 mg tablet 500 mg PO BID PRN #60 tab 01/28/21 [Rx Confirmed 05/02/21 Last Taken Unknown] haloperidol 5 mg tablet See Rx Instructions .ROUTE .COMPLEX #90 tab 03/12/21 [Rx Confirmed 05/02/21 Last Taken Unknown] clopidogrel 75 mg tablet See Rx Instructions .ROUTE .COMPLEX #90 tab 03/23/21 [Rx Confirmed 05/02/21 Last Taken Unknown] benztropine 0.5 mg tablet See Rx Instructions .ROUTE .COMPLEX #90 tab 04/13/21 [Rx Confirmed 05/02/21 Last Taken Unknown] clotrimazole 1 applic TOPICAL BID 14 Days #45 g 04/26/21 [Rx Confirmed 05/02/21 Last Taken Unknown] albuterol sulfate 2 puff INHALATION PRN PRN 05/02/21 [History Confirmed 05/02/21 Last Taken Unknown] hydrocodone-acetaminophen 1 tab PO PRN PRN 05/02/21 [History Confirmed 05/02/21 Last Taken Unknown] lorazepam 0.5 mg PO QID 05/02/21 [History Confirmed 05/02/21 Last Taken Unknown] levofloxacin 250 mg PO QDAY #3 tab 05/04/21 [Rx Last Taken Unknown] COURSE Hospital Course Hospital course: Urinary tract infections: After blood and urine cultures were collected, patient was started on Rocephin. Cultures been no growth to date. IV fluid with normal saline was also given as part of the fluid resuscitation's. Patient's white count improved and by day 3 hospitalizations, it did normalize. Patient has been afebrile for more than 24 hours in which clinical stability is by the stage III hospitalizations. Hyponatremia: Urine studies including osmolality and random urine sodium level recheck which exclude endocrine causes suggest SIADH. It was believed that it was secondary to medications including diuretics for which it was being held since admissions. IV fluid with normal saline together with frequent BMP check to ensure slow corrections of serum sodium level were implemented. By day 3 hospitalizations, her serum sodium level improved from 1 25-1 34. Discharge diagnosis: UTI, hyponatremia Time Spent with Patient Time attestation: Total time spent providing and/or coordinating discharge services: Urinary tract infections: After blood and urine cultures were collected, patient was started on Rocephin. Cultures been no growth to date. IV fluid with normal saline was also given as part of the fluid resuscitation's. Patient's white count improved and by day 3 hospitalizations, it did normalize. Patient has been afebrile for more than 24 hours in which clinical stability is by the stage III hospitalizations. Hyponatremia: Urine studies including osmolality and random urine sodium level recheck which exclude endocrine causes suggest SIADH. It was believed that it was secondary to medications including diuretics for which it was being held since admissions. IV fluid with normal saline together with frequent BMP check to ensure slow corrections of serum sodium level were implemented. By day 3 hospitalizations, her serum sodium level improved from 1 25-1 34. EXAM Constitutional Vitals: Temp Pulse Resp BP Pulse Ox 36.6 C 68 20 120/68 96 05/04/21 08:00 05/04/21 02:53 05/04/21 08:00 05/04/21 08:00 05/04/21 02:53 General appearance: cooperative and no acute distress Head Head exam: Present atraumatic and normocephalic Eye Eye exam: Present EOMI and PERRL ENT ENT exam: Present mucous membranes moist, normal exam and normal external ear exam Neck Neck exam: Present normal inspection; Absent lymphadenopathy, tenderness and thyromegaly Respiratory Respiratory exam: Absent accessory muscle use, respiratory distress and wheezes Cardiovascular Cardiovascular exam: Present normal rate and rhythm; Absent JVD GI/Abdominal GI/Abdominal exam: Present normal bowel sounds and soft; Absent organomegaly and tenderness Extremities Exam Extremities exam: Present full ROM, normal capillary refill and normal inspection; Absent tenderness Neurological Exam Neurological exam: Present alert, CN II-XII intact and oriented X3; Absent motor sensory deficit Psychiatric Psychiatric exam: Present normal affect and normal mood; Absent anxious and depressed Skin Skin exam: Present dry and intact Discharge Data Data Completed and Pending Labs on day of discharge: Labs from last 24 hours 05/04/21 05/04/21 05/03/21 05:52 05:52 10:06 WBC 10.8 RBC 4.20 Hgb 12.7 Hct 40.2 MCV 95.7 MCH 30.2 MCHC 31.6 RDW 13.2 Plt Count 339 MPV 9.6 Neut % (Auto) 71.0 Lymph % (Auto) 16.8 [place] % (Auto) 8.8 Eos % (Auto) 2.7 Baso % (Auto) 0.7 Lymph # (Auto) 1.81 [place] # (Auto) 0.95 H Eos # (Auto) 0.29 Baso # (Auto) 0.08 Absolute Neutrophils 7.64 Sodium 134 134 Potassium 3.8 4.0 Chloride 102 99 Carbon Dioxide 22 23 Anion Gap 10.0 12.0 BUN 5 L 5 L Creatinine 0.7 0.7 GFR Calculation 90 90 Glucose 101 116 H Calcium 9.1 8.7 Total Bilirubin 0.3 AST 11 ALT 8 Alkaline Phosphatase 81 Total Protein 7.1 Albumin 3.7 Globulin 3.4 Albumin/Globulin Ratio 1.1 Preliminary micro results at discharge 05/02/21 16:40 Blood Culture - Preliminary Blood 05/02/21 16:35 Blood Culture - Preliminary Blood 05/02/21 12:35 Urine Culture - Preliminary Urine - Clean Void [place] Discharge Plan Patient/Caregiver Discharge Instructions Activity: increase activity as tolerated Diet: Regular Diet Prescriptions: New levofloxacin 250 mg tablet 250 mg PO QDAY Qty: 3 RF: 0 Continued methocarbamol 750 mg tablet 750 mg PO TID Qty: 60 RF: 1 docusate sodium [Colace] 100 mg capsule 100 mg PO QDAY Qty: 90 RF: 4 metoprolol tartrate 25 mg tablet 12.5 mg PO BID Qty: 30 RF: 5 amlodipine 10 mg tablet 10 mg PO QDAY Qty: 90 RF: 3 losartan 100 mg tablet 100 mg PO QDAY Qty: 90 RF: 3 atorvastatin 40 mg tablet 40 mg PO QHS Qty: 90 RF: 3 naproxen [Naprosyn] 500 mg tablet 500 mg PO BID PRN (Reason: pain) Qty: 60 RF: 2 haloperidol 5 mg tablet See Rx Instructions .ROUTE .COMPLEX Qty: 90 RF: 1 clopidogrel 75 mg tablet See Rx Instructions .ROUTE .COMPLEX Qty: 90 RF: 2 benztropine 0.5 mg tablet See Rx Instructions .ROUTE .COMPLEX Qty: 90 RF: 0 aspirin [Adult Low Dose Aspirin] 81 mg tablet,delayed release (DR/EC) 81 mg PO QDAY RF: 0 clotrimazole 1 % cream 1 applic topical BID 14 Days Qty: 45 RF: 0 hydrocodone-acetaminophen 5-325 mg tablet 1 tab PO PRN PRN (Reason: Pain) RF: 0 lorazepam 1 mg tablet 0.5 mg PO QID RF: 0 albuterol sulfate 90 mcg/actuation HFA aerosol inhaler 2 puff INHALATION PRN PRN (Reason: Shortness Of Breath) RF: 0 Discontinued furosemide 40 mg tablet 40 mg PO QAM Qty: 30 RF: 2 potassium chloride [Klor-Con M10] 10 mEq tablet,ER particles/crystals See Rx Instructions .ROUTE .COMPLEX Qty: 30 RF: 2 paroxetine HCl 20 mg tablet See Rx Instructions .ROUTE .COMPLEX Qty: 30 RF: 4 Follow Up Plan Follow up with: Chong Nichols MD [Primary Care Provider] - Patient Disposition: Home, Self-Care Prognosis: Fair Rehab Potential: Good I certify that the patient requires SNF services: No Overall status at discharge: patient is back to baseline Discharge Orders: Discharge Order (Routine); Ordered 05/04/21 Ordered By: Emile ALEJANDRO VTE Deep Vein Thrombosis/Pulmonary Embolism Present on Admission: No
== END 2021-05-04 12:03 | disposition home or self-care (01) | DRG 689 ==
LOC: ED 12:11 → MEDSUR 15:47
PROVIDERS: ADMIT Internal Medicine; ATTEND Internal Medicine